=== PATIENT | male | born 2000 | race Caucasian/White ===

== ENCOUNTER 2023-06-04 07:46 | Emergency (ER) | payer MEDICAID ==
[~2023-06-04] VITALS: Ht 182.9 cm; Wt 103.5 kg
[2023-06-04 08:05] VITALS: BP 159/80; TEMP 98.7
[2023-06-04] MEDS: ipratropium/albuterol 3ml nebule NEB ONE (09:36)
[2023-06-04 09:46] VITALS: PULSE 105; RESP 18; O2SAT 98
[2023-06-04] MEDS ORDERED: AMOX500C2 PO (09:55)
== END 2023-06-04 11:31 | disposition home or self-care (01) ==
LOC: ER 07:47
DX: H66.91 Otitis media, unspecified, right ear (principal); H60.91 Unspecified otitis externa, right ear; J45.909 Unspecified asthma, uncomplicated
CPT/HCPCS: 71045; 94640; 99283